=== PATIENT | female | born 2000 | race African-American/Black ===

== ENCOUNTER 2023-03-12 01:23 | Emergency (ER) | payer MEDICAID ==
[~2023-03-12] VITALS: Ht 162.6 cm; Wt 84.0 kg
[2023-03-12 02:21] VITALS: BP 105/69; PULSE 90; RESP 18; TEMP 98.5; O2SAT 99
== END 2023-03-12 02:45 | disposition left against medical advice (07) ==
LOC: ER 01:23
DX: Z53.21 Procedure and treatment not carried out due to patient leaving prior to being seen by health care provider (principal)
CPT/HCPCS: 99281